=== PATIENT | male | born 1990 | race Caucasian/White ===

== ENCOUNTER → 2020-07-02 | Outpatient (CLI) | payer OTHER | END | disposition home or self-care (01) | LOC: LABWHC1 17:08 | PROVIDERS: ATTEND Emergency Medicine | DX: U07.1 COVID-19 (principal); Z20.828 Contact with and (suspected) exposure to other viral communicable diseases | CPT/HCPCS: U0003; C9803 ==

== ENCOUNTER → 2022-12-14 | Outpatient (CLI) | payer OTHER ==
--- NOTE | 2022-12-14 09:29 | MR ---
EXAMINATION TYPE: MR shoulder RT wo con DATE OF EXAM: 12/14/2022 COMPARISON: None. HISTORY: shoulder pain from overuse for 1 year ago, no relief from PT. Rule out rotator cuff patholog y. TECHNIQUE: Multiplanar, multisequence imaging of the right shoulder is performed without contrast. FINDINGS: Rotator Cuff: Intact distal supraspinatus and infraspinatus tendons. Rotator cuff muscle bulk is pres erved. Acromioclavicular Joint: Moderate narrowing and mild to moderate spurring and capsular hypertrophy. U nderlying fat plane is maintained. Distal acromion morphology is unremarkable. Glenohumeral Joint: Small joint effusion. No significant spurring. Labrum: The labrum appears grossly intact given limitation of non-arthrogram study. Biceps Tendon: The long head of biceps is in normal location within bicipital groove. Bone marrow signal: No focal abnormal marrow signal is appreciated. Other: No additional significant abnormality is appreciated. IMPRESSION: No rotator cuff or labral tear is seen.
== END | disposition home or self-care (01) ==
LOC: RADMRIMAIN 06:53
PROVIDERS: ATTEND Family Medicine
DX: M25.511 Pain in right shoulder (principal); G89.29 Other chronic pain